=== PATIENT | female | born 2000 | race Two or more races ===

== ENCOUNTER 2023-11-26 16:00 | Emergency (ER) | payer BC ==
[~2023-11-26] VITALS: Ht 142.2 cm; Wt 57.2 kg
[2023-11-26 17:24] VITALS: BP 128/78; TEMP 98.2; O2SAT 97
== END 2023-11-26 17:25 | disposition home or self-care (01) ==
LOC: ER 16:03
DX: S70.01XA Contusion of right hip, initial encounter (principal); V49.40XA Driver injured in collision with unspecified motor vehicles in traffic accident, initial encounter; Y93.89 Activity, other specified; Y92.488 Other paved roadways as the place of occurrence of the external cause; Y99.8 Other external cause status
CPT/HCPCS: 72170-TC